=== PATIENT | female | born 1980 | race Caucasian/White ===

== ENCOUNTER 2016-11-27 08:14 | Emergency (ER) | payer OTHER ==
[~2016-11-27] VITALS: Ht 167.6 cm; Wt 109.1 kg
[2016-11-27 08:17] VITALS: BP 141/65; PULSE 66; TEMP 98.3
[2016-11-27] MEDS ORDERED: DOXYCYCLINE 10100 MG PO (08:47)
== END 2016-11-27 09:02 | disposition home or self-care (01) ==
LOC: COL.ER 08:14
DX: S00.86XA Insect bite (nonvenomous) of other part of head, initial encounter (principal); W57.XXXA Bitten or stung by nonvenomous insect and other nonvenomous arthropods, initial encounter; Y92.003 Bedroom of unspecified non-institutional (private) residence as the place of occurrence of the external cause; Z23 Encounter for immunization

== ENCOUNTER 2023-11-30 06:58 | Inpatient (IN) | payer BC ==
[2023-11-30] VITALS (19 sets, daily range): BP systolic 67–123; BP diastolic 36–88; PULSE 61–100; TEMP 97.6–98.1
[~2023-11-30] VITALS: Ht 167.6 cm; Wt 115.9 kg
[~2023-11-30 06:58] MED LIST: DOXYCYCLINE 10100 MG PO
[2023-11-30] MEDS ORDERED: LR 1,000 ML IV SCH ×2 (07:00)
[2023-11-30] MEDS ORDERED: CIMZIA200 MG SQ (07:08)
[2023-11-30] MEDS ORDERED: PRENATAL TABLET PO (07:08)
[2023-11-30 07:40] LABS: BASO % 0.3 % (0.0-2.0); EOS # 0.1 K/mm3 (0.0-0.7); EOS % 1.5 % (0.0-4.0); GRAN # 4.7 K/mm3 (1.4-6.5); GRAN % 58.8 % (42.2-75.2); HEMOGLOBIN 11.9 g/dl (12.5-16.0); LYMPH # 2.4 K/mm3 (1.2-3.4); MEAN CELL VOLUME 87 fl (80.0-100.0); MEAN CORPUSCULAR HEMOGLOBIN 30 pg (27-31); MEAN CORPUSCULAR HGB CONC 35 g/dl (33.0-37.0); MONO # 0.7 K/mm3 (0.1-0.6); MONO % 9.1 % (1.7-9.3); PLATELET COUNT 204 K/mm3 (130-400); RED BLOOD COUNT 3.91 M/mm3 (4.10-5.30); REDCELL DISTRIBUTION WIDTH-CV 13.9 % (11.5-14.5)
[2023-11-30 07:45] LABS: HEMATOCRIT 33.9 % (37.0-47.0)
[2023-11-30] MEDS ORDERED: Magnes Hydrox (MOM) 80 MG/ML 30 ML CUP PO PRN (08:15)
[2023-11-30] MEDS ORDERED: Acetaminophen 500 MG TAB PO PRN (08:15)
[2023-11-30] MEDS ORDERED: Loratadine 10 MG TAB PO PRN (08:15)
[2023-11-30] MEDS ORDERED: oxyCODONE 5 MG TAB PO PRN (08:15)
[2023-11-30] MEDS ORDERED: Morphine 4 MG/ML VIAL IV PRN ×2 (08:15→10:30)
[2023-11-30] MEDS ORDERED: LR 1,000 ML IV PRN (08:15)
[2023-11-30] MEDS ORDERED: Ondansetron 4 MG/2 ML VIAL IV PRN ×2 (08:15→10:30)
[2023-11-30] MEDS ORDERED: Naloxone 0.4 MG/ML VIAL IV PRN (08:15)
--- NOTE | 2023-11-30 08:31 | NUR ---
Patient and spouse arrive ambulatory at 0710 for scheduled . Pt changes into gown, EFM explained and placed. VS and assessment done. IV started in RH, labs drawn, LR started per protocol. Pt denies leaking of fluid and vaginal bleeding, reports occasional contractions and good movement. Consents discussed and signed. Plan of care discussed, pt verbalizes agreement and understanding.
[2023-11-30] MEDS ORDERED: Measles/Mumps/Rubella Virus Vaccine Live w Diluent 0.5 ML VIAL SQ SCH (09:00)
[2023-11-30] MEDS ORDERED: EPINEPHrine 1 MG/1 ML Ampule ONE (09:47)
[2023-11-30] MEDS ORDERED: Oxytocin 10 UNITS/ML VIAL ONE (10:05)
[2023-11-30] MEDS ORDERED: NS 30 ML IV ONE (10:05)
[2023-11-30] MEDS ORDERED: Ondansetron 4 MG/2 ML VIAL ONE (10:05)
[2023-11-30] MEDS ORDERED: Ketorolac 30 MG/ML VIAL ONE (10:05)
[2023-11-30] MEDS ORDERED: dexAMETHasone 10 MG/ML VIAL ONE (10:05)
[2023-11-30] MEDS ORDERED: MOTRIN 800800 MG/TAB PO (10:16)
[2023-11-30] MEDS ORDERED: PERCOCET 325 MG1 TA2 PO (10:16)
[2023-11-30] MEDS ORDERED: Meperidine 50 MG/ML 1 ML VIAL IV PRN (10:30)
[2023-11-30] MEDS ORDERED: diphenhydrAMINE 50 MG/ML 1 ML VIAL IV PRN (10:30)
--- NOTE | 2023-11-30 12:50 | NUR ---
Data: Patient politely declined Manager Utility visit offered during Manager Utility rounds. Assessment: Patient declined. Plan of Care: Chaplains will remain available if requested while Patient is admitted to this hospital.
[2023-11-30] MEDS ORDERED: Ibuprofen 800 MG TAB PO SCH (14:02)
--- NOTE | 2023-11-30 14:37 | NUR ---
1418 - Pt able to lift both legs off the bed and hold for >5seconds. Pt up to sitting at bedside independently. While this nurse leaned over to get Bang bag prior to assisting pt to stand, pt attempted standing on her own. Pt unable to keep her balance, falling forward, hitting this nurse's head, and per patient, landing on her knees then catching herself with her hands. Pt assisted back to sitting at bedside. Pt denies feeling lightheaded or dizzy, denies feeling pain other than aching knees. VS taken and stable. Pt instructed to remain sitting on bedside or lying in bed, not to attempt to stand. Pt verbalizes understanding. Dr. Ramirez on unit and notified. sheet metal duct worker supervisor and charge nurse notified.
--- NOTE | 2023-11-30 15:05 | NUR ---
Pt up with 2 standby assist to bathroom. Pt able to ambulated assisted, states she feels "like my butt is still numb and so are the back of my thighs". Pt able to stand independtly on left leg, but falls forward when attempting to do the same on the right. Pt able to sit and stand from toilet independently. Bang removed, pericare provided, clean panties and pad placed, pt dressed herself in her own clothes. Pt assisted back to bed, given instructions to call for assistance if wanting or needing to get up. Pt verbalizes understanding.
[2023-11-30] MEDS ORDERED: Sennosides/Docusate 8.6-50 MG TAB PO SCH (17:00)
[2023-11-30] MEDS ORDERED: traZODone 50 MG TAB PO PRN (21:00)
[2023-12-01 05:10] VITALS: BP 117/54; PULSE 70; TEMP 98
[2023-12-01 08:20] VITALS: BP 118/51; PULSE 72; TEMP 97.6
--- NOTE | 2023-12-01 11:43 | NUR ---
Pt showered and removed dressing. Incision edges well approximated, no redness, brusing, swelling noted.
[2023-12-01 16:32] VITALS: BP 108/55; PULSE 76
[2023-12-01 19:05] VITALS: BP 111/54; PULSE 73; TEMP 97.7
[2023-12-02 07:21] VITALS: BP 121/60; PULSE 72; TEMP 97.8
--- NOTE | 2023-12-02 10:30 | NUR ---
Initial visit attempt; Family out of room, Skates Operator left card offering Congratulations and God's blessings for the of their daughter and information regarding the availability of [facility] at our hospital.
[2023-12-02 16:30] VITALS: BP 127/54; PULSE 76; TEMP 98.2
--- NOTE | 2023-12-02 18:30 | NUR ---
Report recieved at this time. Finishing feeding infant "pumped breastmilk." POC reviewed and whiteboard updated.
[2023-12-02 21:30] VITALS: BP 111/57; PULSE 77; TEMP 97.6
[2023-12-03 06:54] VITALS: BP 120/54; PULSE 72; TEMP 98
== END 2023-12-03 12:15 | disposition home or self-care (01) | DRG 788 ==
LOC: OB 06:58
PROVIDERS: ADMIT Obstetrics & Gynecology
PROC: 10D00Z1 Extraction of Products of Conception, Low, Open Approach (ICD-10-PCS; principal; 2023-11-30)
DX: O36.63X0 Maternal care for excessive fetal growth, third trimester, not applicable or unspecified (principal); Z3A.39 39 weeks gestation of pregnancy; Z37.0 Single live birth; O99.214 Obesity complicating childbirth; O99.344 Other mental disorders complicating childbirth; F41.9 Anxiety disorder, unspecified; L40.50 Arthropathic psoriasis, unspecified; O99.72 Diseases of the skin and subcutaneous tissue complicating childbirth; Z14.1 Cystic fibrosis carrier
CPT/HCPCS: J0171; J0665; J0690; J1100; J1885; J2405; J2590; J7120

== ENCOUNTER → 2023-12-09 | Outpatient (CLI) | payer BC ==
[~2023-12-09] MED LIST changes: +CIMZIA200 MG SQ; +MOTRIN 800800 MG/TAB PO; +PERCOCET 325 MG1 TA2 PO; +PRENATAL TABLET PO
--- NOTE | 2023-12-09 14:42 | NUR ---
Pt, Madelin Nieto, presents for out-patient consult with 9 days old baby girl, Quiana Haile, and pt's significant other/FOB Lance Haile. Pt scheduled a consult due to Quiana not gaining weight well in the first week of life. She was referred by Dr. Thompson for an appointment. Quiana was born on [birth year] and weighed 7# 15.7oz (3620 gms). Prior to discharge she was 11% below weight at 7# 1oz (3210 gms). She was seen at [facility] on 12/05/23 and weighted 7# 4.4oz. While in the hospital Quiana was not nursing well and the milk supply had not yet established. A feeding plan was made that had Madelin offering breast, supplementing by bottle, and pumping. After the [facility] visit, Madelin stated Quiana was not eating well, rejecting part of the bottles, and spitting up. She was advised at that time to continue but not to force more by bottle than Quiana tolerated. And to continue pumping. Today Quiana weighs 7# 8.3oz (3410 gms). Her voids and stools are WNL. Pt states she breastfeeds Quiana 2-3 times per 24 hours, and gives her 60-70ml breastmilk by bottle at the remainder of the feedings. At this appointment, pt latches Quiana in football hold but lets the weight of her breast drop so Danielle does not stay latched. Pt advised to keep support under the breast, and when swallows slowed down, provide breast massage and compression. After breast feeding the right breast, Quiana refused the left. She had a weight gain of 2.5oz (72 gms) and was content. POC: Continue ad vidya, providing 60-90ml as tolerated with bottle feedings when not breastfed, and pump if Quiana does not breastfeed. F/U: As desired at walk-in clinic and as scheduled for Quiana's [address] Urrutia. Questions invited and answered.
== END ==
LOC: LAC 11:25
DX: Z39.1 Encounter for care and examination of lactating mother (principal); Z71.89 Other specified counseling